=== PATIENT | male | born 1950 | race Caucasian/White ===

== ENCOUNTER 2016-06-20 22:03 | Emergency (ER) | payer MEDICARE, OTHER ==
[~2016-06-20] VITALS: Ht 165.1 cm; Wt 77.1 kg
[~2016-06-20 22:03] MED LIST: NKM; OMEPRAZOLE40 M1 ORAL; ZOFRAN ODT4 MG ORAL
[2016-06-20] MEDS ORDERED: AMLODIPINE BESY10 MG ORAL (22:35)
[2016-06-20] MEDS ORDERED: IBUPROFEN600 MG ORAL (22:48)
[2016-06-20] MEDS ORDERED: AZITHROMYCIN250 MG ORAL (22:48)
--- NOTE | 2016-06-20 22:49 | Emergency Room Report ---
History of Present Illness General Chief Complaint: Fever Source: Patient Present Illness HPI Is a 66-year-old male with history hypertension. He presents with chief complaint of fever for 2 days. Also with sore throat and cough. No abdominal pain. No nausea no vomiting. Coughing is nonproductive in nature. Nothing made it better. Nothing made it worse. Has been taking over-the- counter medicine for it. Allergies: Coded Allergies: No Known Allergies (Unverified , 06/03/15) Patient History Past Medical History: see triage record, old chart reviewed, HTN Past Surgical History: other Pertinent Family History: none Social History: Denies: smoking Immunizations: other Reviewed Nursing Documentation: PMH: Agreed, PSxH: Agreed Nursing Documentation-PMH Hx Hypertension: Yes Review of Systems Constitutional: Reports: fever Eye: Denies: blurred vision, eye pain ENT: Reports: nose congestion, Denies: ear pain, throat swelling Respiratory: Reports: cough, Denies: shortness of breath Cardiovascular: Denies: chest pain, palpitations Gastrointestinal: Denies: abdominal pain, diarrhea, nausea, vomiting Musculoskeletal: Denies: back pain, joint pain Skin: Denies: rash Neurological: Denies: headache, numbness Endocrine: Denies: increased thirst, increased urine Hematologic/Lymphatic: Denies: easy bruising All Other Systems: negative except mentioned in HPI Physical Exam Vital Signs Date Time Temp Pulse Resp B/P Pulse Ox O2 Delivery O2 Flow Rate FiO2 06/20/16 22:27 101.1 114 20 165/81 95 Room Air vitals with fever Sp02 EP Interpretation: reviewed, normal General Appearance: well appearing, no apparent distress, alert Head: normocephalic, atraumatic Eyes: bilateral eye EOMI, bilateral eye PERRL ENT: hearing grossly normal, uvula midline - Uvula is enlarged, pharyngeal erythema, other - Bilateral TMs are dull with fluid Neck: full range of motion, supple, no meningismus Respiratory: chest non-tender, lungs clear, normal breath sounds Cardiovascular #1: regular rate, rhythm, no murmur Gastrointestinal: normal bowel sounds, non tender, no mass, no organomegaly, no bruit, non-distended Musculoskeletal: back normal, gait/station normal, normal range of motion Psychiatric: mood/affect normal Skin: warm/dry Medical Decision Making Diagnostic Impression: Primary Impression: Upper respiratory infection, acute Additional Impression: Pharyngitis, acute Qualified Codes: J02.9 - Acute pharyngitis, unspecified ER Course Patient presents with upper worse or infection/pharyngitis. Because of his age and medical problem, we'll put on antibiotics. No evidence of sepsis, meningitis, pneumonia, or other serious bacterial infection. No evidence of differential abscess, peritonsillar abscess or Power angina. Last Vital Signs Date Time Temp Pulse Resp B/P Pulse Ox O2 Delivery O2 Flow Rate FiO2 06/20/16 22:27 101.1 114 20 165/81 95 Room Air Status: improved Disposition: HOME, SELF-CARE Condition: Stable Scripts Azithromycin* (ZITHROMAX*) 250 Mg Tablet 250 MG ORAL DAILY, #6 TAB 0 Refills Take two tablets by mouth today, then take one tablet by mouth daily for four days Prov: TABATHA CHOUDHURY M.D. 06/20/16 Ibuprofen* (MOTRIN*) 600 Mg Tablet 600 MG ORAL THREE TIMES A DAY, #30 TAB 0 Refills Prov: TABATHA CHOUDHURY M.D. 06/20/16 Additional Instructions: Followup with your Dr. in 2-3 days. Return if symptom worsen. TABATHA CHOUDHURY M.D. Jun 20, 2016 22:48
[2016-06-20 23:01] VITALS: BP 158/83
[2016-06-20 23:03] VITALS: BP 156/82
== END 2016-06-20 23:03 | disposition home or self-care (01) ==
LOC: EMR 22:45
DX: J02.9 Acute pharyngitis, unspecified (principal); J06.9 Acute upper respiratory infection, unspecified; I10 Essential (primary) hypertension
CPT/HCPCS: 99284

== ENCOUNTER 2016-11-13 20:35 | Emergency (ER) | payer MEDICARE, OTHER ==
[~2016-11-13] VITALS: Ht 165.1 cm; Wt 77.1 kg
[~2016-11-13 20:35] MED LIST changes: +AMLODIPINE BESY10 MG ORAL; +AZITHROMYCIN250 MG ORAL; +IBUPROFEN600 MG ORAL
--- NOTE | 2016-11-13 20:58 | Emergency Room Report ---
History of Present Illness General Chief Complaint: Head Injury Source: Patient Present Illness HPI This is a 66-year-old male with no significant past medical history. He presents with head injury laceration. He was at work today and tripped and fell and hit his head on the floor. He sustained a laceration to the right for it. This occurred around 4 PM. No loss of consciousness. Bleeding controlled. He came in after work. patient also hit his right elbow. Complaining of right elbow pain. Pain is 7/10 Allergies: Coded Allergies: No Known Allergies (Unverified , 06/03/15) Patient History Past Medical History: see triage record, old chart reviewed Past Surgical History: none Pertinent Family History: none Social History: Denies: drug use Immunizations: other Reviewed Nursing Documentation: PMH: Agreed, PSxH: Agreed Nursing Documentation-PMH Hx Hypertension: Yes Review of Systems Eye: Denies: blurred vision, eye pain ENT: Denies: ear pain, nose congestion, throat swelling Respiratory: Denies: cough, shortness of breath Cardiovascular: Denies: chest pain, palpitations Gastrointestinal: Denies: abdominal pain, diarrhea, nausea, vomiting Musculoskeletal: Denies: back pain, joint pain Skin: Denies: rash Neurological: Denies: headache, numbness Endocrine: Denies: increased thirst, increased urine Hematologic/Lymphatic: Denies: easy bruising All Other Systems: negative except mentioned in HPI Physical Exam Vital Signs Date Time Temp Pulse Resp B/P Pulse Ox O2 Delivery O2 Flow Rate FiO2 11/13/16 20:41 98.1 65 14 169/85 95 Room Air vitals with hypertension Sp02 EP Interpretation: reviewed, normal General Appearance: well appearing, no apparent distress, alert Head: normocephalic, other - 4 cm oblique laceration to right forehead. Well approximated. No foreign body. Eyes: bilateral eye EOMI, bilateral eye PERRL ENT: hearing grossly normal, normal pharynx Neck: full range of motion, supple, no meningismus Respiratory: chest non-tender, lungs clear, normal breath sounds Cardiovascular #1: regular rate, rhythm, no murmur Gastrointestinal: normal bowel sounds, non tender, no mass, no organomegaly, no bruit, non-distended Musculoskeletal: back normal, gait/station normal, normal range of motion, other - Tenderness to the right olecranon. No deformity. Mild ecchymosis. Full range of motion. Sensation normal. Neurologic: alert, oriented x3 Psychiatric: mood/affect normal Skin: warm/dry Procedures Laceration/Wound Repair Laceration/Wound Repair : Consent: Verbal Wound Location: head Wound's Depth, Shape: into muscle, linear Wound Length (cm): 4 Wound Explored: clean Irrigated w/ Saline (ccs): 500 Betadine Prep?: No Anesthesia: 1% Lidocaine Volume Anesthetic (ccs): 3 Wound Repaired With: sutures Suture Size/Type: 5:0, proline Number of Sutures: 5 Patient Tolerated: Well Complications: None Medical Decision Making Diagnostic Impression: Primary Impression: Acute head injury Qualified Codes: S09.90XA - Unspecified injury of head, initial encounter Additional Impressions: Forehead laceration Qualified Codes: S01.81XA - Laceration without foreign body of other part of head, initial encounter Contusion of elbow, right ER Course This patient with head injury and laceration. No fracture or bleed. No fracture the elbow. Other X-Ray Diagnostic Results Other X-Ray Diagnostic Results : X-Ray ordered: X-rays right elbow # of Views/Limited Vs Complete: 4 View Indication: Pain EP Interpretation: Yes Interpretation: no dislocation, no soft tissue swelling, no fractures Impression: No acute disease Interpreting ER Provider: Electronically signed by Dario Mercer MD CT/MRI/US Diagnostic Results CT/MRI/US Diagnostic Results : Imaging Test Ordered: CT head Impression negative per radiologist Last Vital Signs Date Time Temp Pulse Resp B/P Pulse Ox O2 Delivery O2 Flow Rate FiO2 11/13/16 20:41 98.1 65 14 169/85 95 Room Air Status: improved Disposition: HOME, SELF-CARE Condition: Stable Scripts Ibuprofen* (MOTRIN*) 600 Mg Tablet 600 MG ORAL Q8H Y for For Pain, #30 TAB 0 Refills Prov: DARIO MERCER M.D. 11/13/16 Additional Instructions: Followup with Worker's CompDhiraj Caraballo in 7 days. Suture out in 7 days. Return if worse. DARIO MERCER M.D. Nov 13, 2016 20:58
[2016-11-13 21:00] VITALS: BP 151/84
[2016-11-13] MEDS ORDERED: Tetanus/Diptheria/Pertussis Vaccine 0.5ml Syr IM ONE (21:00)
[2016-11-13] MEDS ORDERED: IBUPROFEN600 MG ORAL (21:25)
[2016-11-13 22:00] VITALS: BP 151/84
== END 2016-11-13 22:00 | disposition home or self-care (01) ==
LOC: EMR 21:16
DX: S01.81XA Laceration without foreign body of other part of head, initial encounter (principal); S09.90XA Unspecified injury of head, initial encounter; I10 Essential (primary) hypertension; S50.01XA Contusion of right elbow, initial encounter; Z23 Encounter for immunization; W01.0XXA Fall on same level from slipping, tripping and stumbling without subsequent striking against object, initial encounter; Y92.9 Unspecified place or not applicable; Y99.0 Civilian activity done for income or pay
CPT/HCPCS: 70450; 90471; 90715